=== PATIENT | male | born 1950 | race Caucasian/White ===

== ENCOUNTER 2020-05-11 09:54 | Day surgery (SDC) | payer MEDICARE, BC ==
[2020-05-04 11:07] LABS: BASOPHILS # (AUTO) 0.1 X10'3 (0-0.2); BASOPHILS % (AUTO) 0.9 % (0-1); EOSINOPHILS # (AUTO) 0.3 X10'3 (0-0.9); EOSINOPHILS % (AUTO) 3.7 % (0-6); LYMPHOCYTES # (AUTO) 1.8 X10'3 (1.1-4.8); LYMPHOCYTES % (AUTO) 19.8 % (21-51); MEAN CORPUSCULAR HEMOGLOBIN 31.9 PG (27.0-31.0); MEAN CORPUSCULAR VOLUME 96.8 FL (78-98); MEAN PLATELET VOLUME 8.8 FL (7.4-10.4); MONOCYTES # (AUTO) 0.8 X10'3 (0-0.9); MONOCYTES % (AUTO) 8.5 % (2-12); NEUTROPHILS # (AUTO) 6.1 X10'3 (1.8-7.7); NEUTROPHILS % (AUTO) 67.1 % (42-75); PRE OP HEMOGLOBIN 11.9 g/dL (14.0-17.9); PRE OP PLATELET COUNT 221 X10'3 (140-440); RED BLOOD COUNT 3.71 X10'6 (4.70-6.10); RED CELL DISTRIBUTION WIDTH 13.7 % (11.5-14.5)
[2020-05-04 11:12] LABS: CLARITY,URINE CLEAR (Clear); COLOR,URINE YELLOW (Yellow); GLUCOSE, URINE NEGATIVE (Neg); KETONES,URINE TRACE mg/dl (Neg); LEUKOCYTE ESTERASE ,URINE NEGATIVE (Neg); NITRITES, URINE NEGATIVE (Neg); OCCULT BLOOD,URINE NEGATIVE (Neg); PROTEIN,URINE NEGATIVE (Neg); UA COLLECTION TYPE CLN CATCH MIDSTREAM; UROBILINOGEN,URINE 0.2 E.U/dL (0.2-1.0)
[2020-05-04 11:22] LABS: PRE OP INR 1.1 INR; PRE OP PROTIME 10.9 SECONDS (9.0-12.0)
[2020-05-04 11:39] LABS: ALBUMIN 3.5 G/DL (3.4-5.0); ALBUMIN/GLOBULIN RATIO 0.9 (1.1-1.5); ALKALINE PHOSPHATASE 109 IU/L (46-116); BLOOD UREA NITROGEN 34 MG/DL (7-18); BUN/CREATININE RATIO 16.6 (5.4-32.0); CALCIUM 8.8 MG/DL (8.5-10.1); CHLORIDE 105 MMOL/L (99-107); CREATININE 2.05 MG/DL (0.60-1.10); PRE OP ALT 33 U/L (30-65); PRE OP ANION GAP 12 (8-16); PRE OP AST 20 U/L (10-37); PRE OP BILIRUB, TOTAL 0.3 MG/DL (0.0-1.0); PRE OP GLUCOSE 111 MG/DL (70-104); PRE OP POTASSIUM 4.7 MMOL/L (3.4-5.1); PRE OP SODIUM 141 MMOL/L (135-145); TOTAL CARBON DIOXIDE 24.3 MMOL/L (24-32); TOTAL PROTEIN 7.5 G/DL (6.4-8.2); eGFR 33 ML/MIN
[~2020-05-11] VITALS: Ht 180.3 cm; Wt 83.5 kg
[2020-05-11] VITALS (9 sets, daily range): BP systolic 120–147; BP diastolic 69–78
[~2020-05-11 09:54] MED LIST: AMLO10TA53 PO; AMPH20CA3 PO; ASPI-612 PO; ATOR40TA PO; BUPR150T8 PO; FLO0.4C PO; GABA300C PO; HYDR-4353 PO; MULT-1085 PO; NIAC500C12 PO; OLME40TA18 PO; UBID100C16 PO; VIT1CAPS46 PO; cefazolin/dext.iso 2gm/50ml 50 ML IV ONE; famotidine 20mg tablet PO ONE; ringers solution, lacted 1,000 ML IV SCH; vancomycin 1,500 MG in NS 300ml IV soln IV ONE
[2020-05-11] MEDS ORDERED: fentaNYL /PF 50mcg/ml 5ml ampule ONE (10:17)
[2020-05-11] MEDS ORDERED: midazolam 2 mg/2 ml injection ONE (10:17)
[2020-05-11] MEDS ORDERED: HYDROmorphone inj. 0.5 MG/0.5 ML DISP.SYRIN IV PRN ×2 (10:25)
[2020-05-11] MEDS ORDERED: ondansetron/PF 4mg/2ml inj IV PRN (10:25)
[2020-05-11] MEDS ORDERED: morphine 2 MG/ML inj. syringe IV PRN (10:25)
[2020-05-11] MEDS ORDERED: meperidine/PF 25mg/ml syringe IV PRN (10:25)
[2020-05-11] MEDS ORDERED: ringers solution, lacted 1,000 ML IV SCH (10:25)
[2020-05-11] MEDS ORDERED: morphine 4 MG/ML inj SYRINge IV PRN (10:25)
[2020-05-11] MEDS ORDERED: CYCL-1 PO (11:02)
[2020-05-11 11:30] LABS: ALBUMIN 3.4 G/DL (3.4-5.0); ALBUMIN/GLOBULIN RATIO 0.9 (1.1-1.5); ALKALINE PHOSPHATASE 99 IU/L (46-116); BLOOD UREA NITROGEN 31 MG/DL (7-18); BUN/CREATININE RATIO 15.7 (5.4-32.0); CALCIUM 8.6 MG/DL (8.5-10.1); CHLORIDE 103 MMOL/L (99-107); CREATININE 1.97 MG/DL (0.60-1.10); PRE OP ALT 33 U/L (30-65); PRE OP ANION GAP 8 (8-16); PRE OP AST 18 U/L (10-37); PRE OP BILIRUB, TOTAL 0.4 MG/DL (0.0-1.0); PRE OP GLUCOSE 115 MG/DL (70-104); PRE OP SODIUM 136 MMOL/L (135-145); TOTAL CARBON DIOXIDE 24.6 MMOL/L (24-32); TOTAL PROTEIN 7.3 G/DL (6.4-8.2); eGFR 34 ML/MIN
[2020-05-11] MEDS ORDERED: propofol inj 20 ML IV ONE (12:00)
[2020-05-11] MEDS ORDERED: phenylephrine 10mg/ml inj. ONE (12:00)
[2020-05-11] MEDS ORDERED: ePHEDrine 50MG/ML INJ. ONE (12:00)
[2020-05-11] MEDS ORDERED: ondansetron/PF 4mg/2ml inj ONE (12:00)
[2020-05-11] MEDS ORDERED: LIDOcaine 2% (20mg/ml) 5ml vial ONE (12:00)
[2020-05-11] MEDS ORDERED: dexamethasone sod phosphate 4mg/ml inj. ONE (12:00)
[2020-05-11] MEDS ORDERED: BUPIVAcaine 0.5% inj/PF 30 ML ONE (12:40)
--- NOTE | 2020-05-11 12:55 | NUR ---
Received from OR via BED , accompanied by Anesthesiologist DR GOMEZ and report given by Anesthesiolgist. PATIENT WAKING UP, DENIES PAIN, V/S WNL, NEUROVASCULAR CHECKS INTACT, 20G PIV LUE , DRESSING TO RIGHT HIP CDI.
[2020-05-11] MEDS ORDERED: BUPIVAcaine 0.5% inj/PF 30 ml vial IJ ONE (13:02)
--- NOTE | 2020-05-11 14:05 | NUR ---
PATIENT A&OX4, DENIES PAIN, V/S WNL, NEUROVASCULAR CHECKS INTACT, 20G PIV LUE D/C , DRESSING TO RIGHT HIP REINFORCED W/ 4X4 FOR SOME MILD BREAKTHROUGH DRAINAGE. I HAVE REVIEWED D/C INSTRUCTIONS WITH PATIENT AND FAMILY AND THEY HAVE VERBALIZED UNDERSTANDING. PATIENT D/C HOME WITH ALL BELONGINGS AND FAMILY GAVE TRANSPORT HOME.
== END 2020-05-11 14:05 | disposition home or self-care (01) ==
LOC: PAS 09:54
PROVIDERS: ATTEND Orthopaedic Surgery
DX: T84.114A Breakdown (mechanical) of internal fixation device of right femur, initial encounter (principal); I10 Essential (primary) hypertension; F90.9 Attention-deficit hyperactivity disorder, unspecified type; G89.29 Other chronic pain; K21.9 Gastro-esophageal reflux disease without esophagitis; M19.011 Primary osteoarthritis, right shoulder; M16.11 Unilateral primary osteoarthritis, right hip; Z20.828 Contact with and (suspected) exposure to other viral communicable diseases; Z79.899 Other long term (current) drug therapy; Z79.01 Long term (current) use of anticoagulants; Z98.890 Other specified postprocedural states; Z87.891 Personal history of nicotine dependence; Z72.89 Other problems related to lifestyle; Y83.8 Other surgical procedures as the cause of abnormal reaction of the patient, or of later complication, without mention of misadventure at the time of the procedure; Y92.89 Other specified places as the place of occurrence of the external cause
CPT/HCPCS: 20680; 36415; 73501; 76000; 80053; 81003; 82948; 85025; 85610; 85730; 86885; 86900; 86901; 87635; 93005; J1100; J2001; J2175; J2250; J2370; J2405; J2704; J3010; J3370; J7040; J7120; A4618; A7000

== ENCOUNTER 2020-10-04 06:43 | Inpatient (IN) | payer MEDICARE, BC ==
[2020-09-27 15:58] LABS: BASOPHILS # (AUTO) 0.1 X10'3 (0-0.2); BASOPHILS % (AUTO) 1.3 % (0-1); EOSINOPHILS # (AUTO) 0.3 X10'3 (0-0.9); EOSINOPHILS % (AUTO) 4.2 % (0-6); LYMPHOCYTES # (AUTO) 1.8 X10'3 (1.1-4.8); LYMPHOCYTES % (AUTO) 22.9 % (21-51); MEAN CORPUSCULAR HEMOGLOBIN 31.4 PG (27.0-31.0); MEAN PLATELET VOLUME 8.9 FL (7.4-10.4); MONOCYTES # (AUTO) 0.8 X10'3 (0-0.9); MONOCYTES % (AUTO) 10.5 % (2-12); NEUTROPHILS # (AUTO) 4.7 X10'3 (1.8-7.7); NEUTROPHILS % (AUTO) 61.1 % (42-75); PRE OP HEMATOCRIT 38.6 % (42.0-52.0); PRE OP HEMOGLOBIN 12.8 g/dL (14.0-17.9); PRE OP PLATELET COUNT 225 X10'3 (140-440); RED BLOOD COUNT 4.07 X10'6 (4.70-6.10)
[2020-09-27 16:41] LABS: ALBUMIN 3.8 G/DL (3.4-5.0); ALBUMIN/GLOBULIN RATIO 0.9 (1.1-1.5); ALKALINE PHOSPHATASE 126 IU/L (46-116); BLOOD UREA NITROGEN 35 MG/DL (7-18); BUN/CREATININE RATIO 18.2 (5.4-32.0); CALCIUM 9.3 MG/DL (8.5-10.1); CHLORIDE 106 MMOL/L (99-107); CREATININE 1.92 MG/DL (0.60-1.10); PRE OP ALT 33 U/L (30-65); PRE OP ANION GAP 8 (8-16); PRE OP AST 19 U/L (10-37); PRE OP BILIRUB, TOTAL 0.2 MG/DL (0.0-1.0); PRE OP GLUCOSE 104 MG/DL (70-104); PRE OP POTASSIUM 4.9 MMOL/L (3.4-5.1); PRE OP SODIUM 140 MMOL/L (135-145); TOTAL CARBON DIOXIDE 26.3 MMOL/L (24-32); TOTAL PROTEIN 8.1 G/DL (6.4-8.2); eGFR 35 ML/MIN
[2020-09-27 17:05] LABS: PRE OP PROTIME 10.7 SECONDS (9.0-12.0)
[2020-10-04] VITALS (18 sets, daily range): BP systolic 91–134; BP diastolic 40–72
[~2020-10-04] VITALS: Ht 180.3 cm; Wt 82.0 kg
[~2020-10-04 06:43] MED LIST changes: +ACYC-202 PO; -ASPI-612 PO; +BETA1TAB20 PO; -BUPR150T8 PO; +CANABIS PO; +CHOL20004 PO; +Cefazolin 2GM/100ML NS IVPB 100 ML IV ONE; +FAMO-128 PO; -GABA300C PO; -HYDR-4353 PO; +OXYC-658 PO; +PREVAGEN PO; -UBID100C16 PO; +UBID100C45 PO; -VIT1CAPS46 PO; +acetaminophen 325mg tablet PO ONE; -cefazolin/dext.iso 2gm/50ml 50 ML IV ONE; +celeCOXIB 100mg capsule PO ONE; +gabapentin 300mg capsule PO ONE; +metoclopramide 5 mg/ml inj IV ONE; +oxyCODONE SR 10mg (sust. release) tab -2 tabs (20mg) PO ONE; +tranexamic acid 1gm/0.7% sal. 100 ML IV ONE
[2020-10-04] MEDS ORDERED: HYDROmorphone inj. 0.5 MG/0.5 ML DISP.SYRIN IV PRN (07:00)
[2020-10-04] MEDS ORDERED: ondansetron/PF 4mg/2ml inj IV PRN ×2 (07:00→08:55)
[2020-10-04] MEDS ORDERED: diphenhydrAMINE 25mg capsule PO PRN ×2 (07:00)
[2020-10-04] MEDS ORDERED: bisacodyl 10mg suppository rectal RC PRN (07:00)
[2020-10-04] MEDS ORDERED: acetaminophen 325mg tablet PO PRN (07:00)
[2020-10-04] MEDS ORDERED: HYDROmorphone 1 mg/ml syringe IV PRN (07:00)
[2020-10-04] MEDS ORDERED: oxyCODONE/APAP 10/325mg tablet PO PRN (07:00)
[2020-10-04] MEDS ORDERED: magnesium hydroxide 30ml (MOM) UD suspension PO PRN (07:00)
[2020-10-04] MEDS: multivitamins, therapeutics tablet PO SCH (08:00)
[2020-10-04] MEDS ORDERED: dextroamphetamine/amphetamine ER 20 MG CAP.SR.24H PO SCH ×2 (08:00→13:56)
[2020-10-04] MEDS: niacin 500mg timed-release capsule PO SCH (08:00)
[2020-10-04] MEDS: gabapentin 300mg capsule PO SCH ×3 (08:00→20:27)
[2020-10-04] MEDS: amLODIPine 5mg tablet PO SCH (08:00)
[2020-10-04] MEDS: losartan 50mg tablet PO SCH (08:00)
[2020-10-04] MEDS: ascorbic acid 500mg tablet PO SCH ×2 (08:00→20:27)
[2020-10-04] MEDS: aspirin 325mg tablet PO SCH (08:30)
[2020-10-04] MEDS ORDERED: ringers solution, lacted 1,000 ML IV SCH (08:55)
[2020-10-04] MEDS ORDERED: morphine 2 MG/ML inj. syringe IV PRN (08:55)
[2020-10-04] MEDS ORDERED: morphine 4 MG/ML inj SYRINge IV PRN (08:55)
[2020-10-04] MEDS ORDERED: acetaminophen 1,000mg/100ml IV 100 ML IV PRN (08:55)
[2020-10-04] MEDS ORDERED: hydrALAZINE 20mg/ml inj. IV PRN (08:55)
[2020-10-04] MEDS ORDERED: proCHLORperazine 10 MG/2 ml inj IV PRN (08:55)
[2020-10-04] MEDS ORDERED: labetalol 20mg/4ml (5mg/ml) syringe IV PRN (08:55)
[2020-10-04] MEDS ORDERED: meperidine/PF 25mg/ml syringe IV PRN ×3 (08:55)
[2020-10-04] MEDS ORDERED: triamcinolone acetonide 40mg/ml inj ONE (08:58)
[2020-10-04] MEDS ORDERED: vancomycin 1,000mg inj ONE (08:59)
[2020-10-04] MEDS ORDERED: cloNIDine hcl/PF 100mcg/ml inj ONE (08:59)
[2020-10-04] MEDS ORDERED: epiNEPHrine 1 mg/ml 30ml MDV ONE (08:59)
[2020-10-04] MEDS ORDERED: ROPIVAcaine 0.5% (5mg/ml) 30ml vial ONE (09:00)
[2020-10-04] MEDS ORDERED: ketorolac trometh. 30mg/ml inj. ONE (09:02)
[2020-10-04] MEDS ORDERED: epiNEPHrine 1 mg/ml inj ONE (09:04)
[2020-10-04] MEDS ORDERED: MIDAZolam 1 MG/ML 5ML VIAL ONE (09:47)
[2020-10-04] MEDS ORDERED: propofol inj 20 ML IV ONE ×2 (10:28)
[2020-10-04] MEDS ORDERED: ePHEDrine 50MG/ML INJ. ONE ×2 (10:28→10:37)
[2020-10-04] MEDS ORDERED: phenylephrine 10mg/ml inj. ONE (11:11)
--- NOTE | 2020-10-04 11:30 | NUR ---
ADMITTED TO PACU FROM OR ACCOMPANIED BY ANESTHESIA. INTIAL PHYSICAL ASSESSMENT DONE AND RECORDED. REPORT RECEIVED FROM ANESTHESIA.
--- NOTE | 2020-10-04 12:30 | NUR ---
PACU DISCHARGE CRITERIA MET, REPORT GIVEN TO FLOOR. DENIES PAIN OR DISCOMFORT, TRANSFERRED TO ROOM IN STABLE GOOD CONDITION.
--- NOTE | 2020-10-04 12:39 | NUR ---
I have received report from ANA LUISA Workman in Recovery and had the opportunity to ask questions and assume patient care. Will await pts arrival to O/N floor
[2020-10-04] MEDS: oxyCODONE/APAP 10/325mg tablet PO PRN ×3 (13:19→23:40)
[2020-10-04] MEDS: potassium cl 20mEq in 1/2 NS 1,000 ML IV SCH ×2 (15:00→18:00)
[2020-10-04] MEDS ORDERED: tranexamic acid inj. 800 MG in normal saline 100ml IV soln 100 ML IV ONE (16:00)
[2020-10-04] MEDS: Cefazolin 2GM/100ML NS IVPB 100 ML IV SCH ×2 (16:34→23:38)
--- NOTE | 2020-10-04 18:31 | NUR ---
Problems reprioritized. Patient report given, questions answered & plan of care reviewed with ANA LUISA Draper.
[2020-10-04] MEDS: tamsulosin 0.4mg capsule PO SCH (20:27)
[2020-10-04] MEDS: sennosides 8.6mg tablet PO SCH (20:27)
[2020-10-04] MEDS: atorvastatin 20mg tablet PO SCH (20:27)
[2020-10-05 02:00] VITALS: BP 111/60
[2020-10-05] MEDS: potassium cl 20mEq in 1/2 NS 1,000 ML IV SCH (03:54)
[2020-10-05] MEDS: oxyCODONE/APAP 10/325mg tablet PO PRN ×2 (05:23→20:15)
[2020-10-05 05:58] LABS: BASOPHILS # (AUTO) 0.1 X10'3 (0-0.2); BASOPHILS % (AUTO) 0.7 % (0-1); EOSINOPHILS # (AUTO) 0.2 X10'3 (0-0.9); EOSINOPHILS % (AUTO) 1.9 % (0-6); HEMATOCRIT 33.1 % (42.0-52.0); LYMPHOCYTES # (AUTO) 1.7 X10'3 (1.1-4.8); LYMPHOCYTES % (AUTO) 17.9 % (21-51); MEAN CORPUSCULAR HEMOGLOBIN 31.4 PG (27.0-31.0); MEAN CORPUSCULAR HGB CONC 33.2 g/dL (33.0-36.5); MEAN CORPUSCULAR VOLUME 94.9 FL (78-98); MEAN PLATELET VOLUME 9.2 FL (7.4-10.4); MONOCYTES # (AUTO) 0.9 X10'3 (0-0.9); NEUTROPHILS # (AUTO) 6.5 X10'3 (1.8-7.7); NEUTROPHILS % (AUTO) 69.5 % (42-75); PLATELET COUNT 207 X10'3 (140-440); RED BLOOD COUNT 3.49 X10'6 (4.70-6.10); RED CELL DISTRIBUTION WIDTH 13.9 % (11.5-14.5); WHITE BLOOD COUNT 9.4 X10'3 (4.5-11.0)
[2020-10-05 06:00] VITALS: BP 97/67
--- NOTE | 2020-10-05 06:03 | NUR ---
Report given Kelly OROSCO.
[2020-10-05 06:11] LABS: ANION GAP 9 (8-16); CHLORIDE 103 MMOL/L (99-107); POTASSIUM 5.6 MMOL/L (3.5-5.1); SODIUM 137 MMOL/L (135-145); TOTAL CARBON DIOXIDE 25.2 MMOL/L (24-32)
--- NOTE | 2020-10-05 06:53 | NUR ---
Patient in room [facility]22. I have received report from Bonny OROSCO and had the opportunity to ask questions and assume patient care.
--- NOTE | 2020-10-05 07:01 | NUR ---
Pt's K+ is 5.6. Pt A&Ox4, no c/o, no s/sx distress. Phone call to Dr Homero Lynn. Orders to stop IV fluids received. Will continue to monitor.
[2020-10-05] MEDS: niacin 500mg timed-release capsule PO SCH (08:00)
[2020-10-05] MEDS: dextroamphetamine/amphetamine ER 20 MG CAP.SR.24H PO SCH (08:00)
--- NOTE | 2020-10-05 08:30 | NUR ---
Pt refusing a.m. meds at this time due to nausea. Zofran given. Will continue to monitor.
[2020-10-05 10:00] VITALS: BP 126/76
[2020-10-05] MEDS: losartan 50mg tablet PO SCH (10:29)
[2020-10-05] MEDS: ascorbic acid 500mg tablet PO SCH ×2 (10:29→20:14)
[2020-10-05] MEDS: gabapentin 300mg capsule PO SCH ×3 (10:30→20:14)
[2020-10-05] MEDS: aspirin 325mg tablet PO SCH (10:30)
[2020-10-05] MEDS: multivitamins, therapeutics tablet PO SCH (10:30)
[2020-10-05] MEDS: amLODIPine 5mg tablet PO SCH (10:30)
--- NOTE | 2020-10-05 10:45 | NUR ---
Vika Amaya at pt's bedside. Report given re: pt's nausea, meds held, orders received. Will continue to monitor.
[2020-10-05] MEDS ORDERED: proCHLORperazine 10mg tablet PO ONE (10:50)
--- NOTE | 2020-10-05 13:47 | NUR ---
Joint Replacement Consult: Pt s/p R MEGHAN PO 75-100% avg first regular diet good intake so far. No nutrition concerns at this time. LB 10/03. To provide initial assessment on above date. Addendum: 10/05/20 at [address] Amended: Links added.
[2020-10-05 18:00] VITALS: BP 126/60
--- NOTE | 2020-10-05 18:22 | NUR ---
Problems reprioritized. Patient report given, questions answered & plan of care reviewed with Bonny OROSCO.
[2020-10-05] MEDS ORDERED: famotidine 10mg tablet PO SCH (20:00)
[2020-10-05] MEDS ORDERED: celeCOXIB 100mg capsule PO SCH (20:00)
[2020-10-05] MEDS: tamsulosin 0.4mg capsule PO SCH (20:14)
[2020-10-05] MEDS: atorvastatin 20mg tablet PO SCH (20:14)
[2020-10-05] MEDS: famotidine 20mg tablet PO SCH (20:14)
[2020-10-05] MEDS: sennosides 8.6mg tablet PO SCH (20:15)
[2020-10-05 22:00] VITALS: BP 121/57
[2020-10-06] MEDS: oxyCODONE/APAP 10/325mg tablet PO PRN (03:49)
[2020-10-06] MEDS ORDERED: ASPI-1 PO (05:39)
[2020-10-06 06:03] LABS: BASOPHILS # (AUTO) 0.1 X10'3 (0-0.2); BASOPHILS % (AUTO) 0.5 % (0-1); EOSINOPHILS # (AUTO) 0.1 X10'3 (0-0.9); EOSINOPHILS % (AUTO) 0.6 % (0-6); HEMATOCRIT 30.2 % (42.0-52.0); LYMPHOCYTES # (AUTO) 1.6 X10'3 (1.1-4.8); LYMPHOCYTES % (AUTO) 13.6 % (21-51); MEAN CORPUSCULAR HEMOGLOBIN 31.1 PG (27.0-31.0); MEAN CORPUSCULAR HGB CONC 33.1 g/dL (33.0-36.5); MEAN PLATELET VOLUME 9.1 FL (7.4-10.4); MONOCYTES # (AUTO) 1.6 X10'3 (0-0.9); MONOCYTES % (AUTO) 12.9 % (2-12); NEUTROPHILS # (AUTO) 8.7 X10'3 (1.8-7.7); NEUTROPHILS % (AUTO) 72.4 % (42-75); PLATELET COUNT 186 X10'3 (140-440); RED BLOOD COUNT 3.21 X10'6 (4.70-6.10); RED CELL DISTRIBUTION WIDTH 13.6 % (11.5-14.5); WHITE BLOOD COUNT 12.1 X10'3 (4.5-11.0)
[2020-10-06 07:15] VITALS: BP 112/57
[2020-10-06 07:50] VITALS: BP_SYST 112
[2020-10-06] MEDS: losartan 50mg tablet PO SCH (07:50)
[2020-10-06] MEDS: multivitamins, therapeutics tablet PO SCH (07:50)
[2020-10-06] MEDS: gabapentin 300mg capsule PO SCH (07:50)
[2020-10-06] MEDS: amLODIPine 5mg tablet PO SCH (07:50)
[2020-10-06] MEDS: aspirin 325mg tablet PO SCH (07:50)
[2020-10-06] MEDS: ascorbic acid 500mg tablet PO SCH (07:51)
[2020-10-06] MEDS: famotidine 20mg tablet PO SCH (07:52)
[2020-10-06] MEDS: niacin 500mg timed-release capsule PO SCH (07:54)
[2020-10-06] MEDS: dextroamphetamine/amphetamine ER 20 MG CAP.SR.24H PO SCH (07:54)
--- NOTE | 2020-10-06 10:10 | NUR ---
Patient stable and appropriate for discharge home with . IV removed, all belongings taken from room. yara dressing intact, patient understands use and care. all discharge instructions given and reviewed with patient, all questions answered. New RX was given to patient, he is aware of next due doses on all medications, and the need for follow up with Dr. Lynn.
--- NOTE | 2020-10-07 13:14 | NUR ---
CASE MANAGEMENT DISCHARGE FOLLOW UP: Spoke with pt via telephone. Reports that he is doing well, states currently laying down and admits pain level is 1/10 but that pain level becomes much higher with activity, states dressing is CDI; denies SOB, CP, bleeding, fever, s/sx of infection. Pt states that he has been getting up and walking around to help keep his lungs open. Verbalizes understanding of s/sx requiring further evaluation/emergent assistance. Verbalizes understanding of new and current medications. Verbalizes compliance with MD discharge instructions. Verbalizes understanding of the importance in making/keeping follow-up appointments, will set up appointment. 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
== END 2020-10-06 10:10 | disposition home or self-care (01) | DRG 470 ==
LOC: PAS 06:43 → ORTHO 4S 06:59 → PAS 07:01 → ORTHO 4S 07:02
PROVIDERS: ADMIT Orthopaedic Surgery; ATTEND Orthopaedic Surgery
PROC: 0SR906Z Replacement of Right Hip Joint with Oxidized Zirconium on Polyethylene Synthetic Substitute, Open Approach (ICD-10-PCS; principal; 2020-10-04 09:43)
DX: M16.11 Unilateral primary osteoarthritis, right hip (principal); Z79.82 Long term (current) use of aspirin; E87.5 Hyperkalemia; Z79.899 Other long term (current) drug therapy; D50.0 Iron deficiency anemia secondary to blood loss (chronic)
CPT/HCPCS: 36415; 72170; 76937; 80051; 80053; 82948; 85025; 85610; 85730; 86885; 86900; 86901; 87081; A7000; C1776; G0378; J0171; J0690; J0735; J1885; J2250; J2370; J2405; J2704; J2765; J2795; J3301; J3370; J3480; J7040; J7120; Q0164